=== PATIENT | female | born 1980 | race Caucasian/White ===

== ENCOUNTER → 2017-04-16 | Outpatient (CLI) | payer OTHER ==
--- NOTE | 2017-04-17 08:36 | RAD ---
Indication advanced maternal age. Obstetrical ultrasound examination was performed. No prior imaging is available. The maternal cervix measures approximately 4.4 cm. There is a single, viable, IUP. heart rate of 158 was documented. The placenta is predominantly posterior and fundal. The amount of amniotic fluid appears normal and the calculated index is 11. Biparietal diameter of 3.9 cm, head circumference of 15 cm, abdominal circumference of 12.3 cm and femoral length of 2.6 cm are compatible with a gestational age of approximately 17 weeks 6 days. By sonographic analysis the estimated date of confinement is 09/18/2017. The estimated weight is approximately 215 g. The current presentation is variable. There was a three-vessel cord. A 4 chambered heart was seen. The bladder, stomach and kidneys appeared unremarkable. There was incomplete visualization of the spine but no gross abnormality was seen. Similarly the brain appeared grossly unremarkable. The maternal ovaries were not identified. IMPRESSION: Single, viable, IUP of approximately 17 weeks 6 days gestation
== END | disposition home or self-care (01) ==
LOC: US 13:50
PROVIDERS: ATTEND Obstetrics & Gynecology
DX: O09.522 Supervision of elderly multigravida, second trimester (principal); O34.219 Maternal care for unspecified type scar from previous cesarean delivery; Z3A.17 17 weeks gestation of pregnancy
CPT/HCPCS: 76805